=== PATIENT | male | born 1960 | race Caucasian/White ===

== ENCOUNTER 2020-01-02 11:27 | Emergency (ER) | payer BC ==
--- NOTE | 2020-01-02 11:46 | EDM.PDOC ---
ED HPI GENERAL MEDICAL PROBLEM - General Chief Complaint: General Stated Complaint: FEELING WEAK/SWEATY/NAUSEATED AND SOB Time Seen by Provider: 01/02/20 11:42 Source of Information: Reports: Patient, Old Records, RN, RN Notes Reviewed History Limitations: Reports: No Limitations - History of Present Illness INITIAL COMMENTS - FREE TEXT/NARRATIVE: Pt presents to ER from home by POV with c/o sudden onset Thursday night (12/30/19) of sweats, chills, nausea, and acid reflux. Pt admits he may have had fevers, but didn't measure his temperature. The symptoms has persisted, and today he feels very weak in general. Pt denies pain. Admits to occasional mild shortness of breath. Pt denies chest pain, cough, eye irritation/drainage, loss of taste or smell, red tongue, rash or skin lesions, abdominal pain, V/D, fevers, recent travel, or known exposure to confirmed or suspected Covid-19 cases. Onset Date: 12/30/19 Duration: Constant Location: Reports: Generalized Severity: Moderate Improves with: Reports: None Worsens with: Reports: None Associated Symptoms: Reports: No Other Symptoms - Related Data Allergies Allergy/AdvReac Type Severity Reaction Status Date / Time No Known Allergies Allergy Verified 01/02/20 11:36 Home Meds: Home Meds Omeprazole Magnesium [Prilosec Otc] 20 mg PO DAILY 01/02/20 [History] Past Medical History Cardiovascular History: Reports: Heart Murmur Respiratory History: Reports: Other (See Below) (Chronic tobacco dependence.) Gastrointestinal History: Reports: GERD Social & Family History - Family History Family Medical History: Noncontributory - Tobacco Use Smoking Status *Q: Current Every Day Smoker Tobacco Use Within Last Twelve Months: Cigarettes Years of Tobacco use: 40 Packs/Tins Daily: 1.5 Smoking Cessation Information Provided To Patient: Patient Refused - Alcohol Use Alcohol Use History: Yes - Living Situation & Occupation Occupation: Employed ED ROS GENERAL - Review of Systems Review Of Systems: Comprehensive ROS is negative, except as noted in HPI. ED EXAM, GENERAL - Physical Exam Exam: See Below Exam Limited By: No Limitations General Appearance: Alert, WD/WN, No Apparent Distress Eye Exam: Bilateral Eye: Normal Inspection (No scleral icterus) Ears: Normal External Exam, Hearing Grossly Normal Nose: Normal Inspection, Normal Mucosa, No Blood Throat/Mouth: Normal Lips, Normal Oropharynx, Normal Voice, No Airway Compromise , Other (Dry oral mucosa) Head: Atraumatic, Normocephalic Neck: Normal Inspection, Supple, Non-Tender, Full Range of Motion Respiratory/Chest: No Respiratory Distress, Lungs Clear, Normal Breath Sounds, No Accessory Muscle Use, Chest Non-Tender. No: Rales, Rhonchi, Wheezing, Stridor Cardiovascular: Regular Rate, Rhythm, No Edema, No JVD, Systolic Murmur (4/6 NANO ) GI/Abdominal: Normal Bowel Sounds, Soft, Non-Tender, No Distention. No: Guarding, Rigid, Rebound Back Exam: Normal Inspection, Full Range of Motion. No: CVA Tenderness (L), CVA Tenderness (R) Extremities: Normal Inspection, Normal Range of Motion, Non-Tender, Normal Capillary Refill, No Pedal Edema Neurological: Alert, Oriented, CN II-XII Intact, Normal Cognition, Normal Gait, No Motor/Sensory Deficits Psychiatric: Normal Affect, Normal Mood Skin Exam: Warm, Dry, Intact, Normal Color, No Rash EKG INTERPRETATION EKG Date: 01/02/20 Time: 11:57 Rhythm: Other (SR) Rate (Beats/Min): 81 [place]: Normal P-Wave: Present QRS: Other (RSR' in V1/V2, LVH) ST-T: Normal QT: Normal Comparison: NA - No Prior EKG Course - Vital Signs Last Recorded V/S: Last Vital Signs Temp 98.2 F 01/02/20 11:36 Pulse 86 01/02/20 11:36 Resp 18 01/02/20 11:36 BP 187/89 H 01/02/20 11:36 Pulse Ox 98 01/02/20 11:36 - Orders/Labs/Meds Orders: Active Orders 24 hr Category Date Time Status EKG 12 Lead [EKG Documentation Completion] [RC] STAT Care 01/02/20 11:53 Active Peripheral IV Care [RC] . DIRECTED Care 01/02/20 11:54 Active CULTURE URINE [RM] Stat Lab 01/02/20 13:35 Received Sodium Chloride 0.9% [Saline Flush] Med 01/02/20 11:54 Active 10 ml FLUSH ASDIRECTED PRN Peripheral IV Insertion Adult [OM.PC] Stat Oth 01/02/20 11:53 Ordered Medication Orders Sodium Chloride (Saline Flush) 10 ml FLUSH ASDIRECTED PRN PRN Reason: Keep Vein Open Last Admin: 01/02/20 12:24 Dose: 10 ml Labs: Laboratory Tests 01/02/20 01/02/20 01/02/20 Range/Units 11:58 11:58 11:58 WBC 11.1 H (5.0-10.0) 10^3/uL RBC 5.58 (4.6-6.2) 10^6/uL Hgb 17.5 (14.0-18.0) g/dL Hct 50.7 (40.0-54.0) % MCV 90.9 (80-100) fL MCH 31.4 (27.0-34.0) pg MCHC 34.5 (33.0-35.0) g/dL Plt Count 209 (150-450) 10^3/uL Neut % (Auto) 72.9 (42.2-75.2) % Lymph % (Auto) 16.7 L (20.5-50.1) % Parker % (Auto) 8.5 H (2-8) % Eos % (Auto) 1.5 (1.0-3.0) % Baso % (Auto) 0.4 (0.0-1.0) % D-Dimer, Quantitative < 100 (0-400) ng/mL Sodium 134 L (136-145) mmol/L Potassium 4.3 (3.5-5.1) mmol/L Chloride 97 L (98-107) mmol/L Carbon Dioxide 27 (21-32) mmol/L Anion Gap 14.3 H (7-13) mEq/L BUN 20 H (7-18) mg/dL Creatinine 1.46 H (0.70-1.30) mg/dL Est Cr Clr Drug Dosing 57.31 mL/min Estimated GFR (MDRD) 49 BUN/Creatinine Ratio 13.7 (No establ ref range) Glucose 95 (74-99) mg/dL Calcium 9.0 (8.5-10.1) mg/dL Total Bilirubin 0.8 (0.2-1.0) mg/dL AST 28 (15-37) U/L ALT 46 (16-63) U/L Alkaline Phosphatase 97 (46-116) U/L Troponin I < 0.017 (0.000-0.056) ng/mL Total Protein 7.5 (6.4-8.2) g/dL Albumin 3.7 (3.4-5.0) g/dL Globulin 3.8 Albumin/Globulin Ratio 1.0 Amylase 41 (25-115) U/L Lipase 96 (73-393) U/L Urine Color (YELLOW) Urine Appearance (CLEAR) Urine pH (5.0-9.0) Ur Specific [place] (1.005-1.030) Urine Protein (NEGATIVE) Urine Glucose (UA) (NEGATIVE) Urine Ketones (NEGATIVE) Urine Occult Blood (NEGATIVE) Urine Nitrite (NEGATIVE) Urine Bilirubin (NEGATIVE) Urine Urobilinogen (0.2-1.0) mg/dL Ur Leukocyte Esterase (NEGATIVE) Urine RBC /HPF Urine WBC (0-5/HPF) /HPF Ur Epithelial Cells (NOT SEEN) /HPF Amorphous Sediment (NOT SEEN) /HPF Urine Bacteria (0-FEW/HPF) /HPF /03/15 Range/Units 13:35 WBC (5.0-10.0) 10^3/uL RBC (4.6-6.2) 10^6/uL Hgb (14.0-18.0) g/dL Hct (40.0-54.0) % MCV (80-100) fL MCH (27.0-34.0) pg MCHC (33.0-35.0) g/dL Plt Count (150-450) 10^3/uL Neut % (Auto) (42.2-75.2) % Lymph % (Auto) (20.5-50.1) % Parker % (Auto) (2-8) % Eos % (Auto) (1.0-3.0) % Baso % (Auto) (0.0-1.0) % D-Dimer, Quantitative (0-400) ng/mL Sodium (136-145) mmol/L Potassium (3.5-5.1) mmol/L Chloride (98-107) mmol/L Carbon Dioxide (21-32) mmol/L Anion Gap (7-13) mEq/L BUN (7-18) mg/dL Creatinine (0.70-1.30) mg/dL Est Cr Clr Drug Dosing mL/min Estimated GFR (MDRD) BUN/Creatinine Ratio (No establ ref range) Glucose (74-99) mg/dL Calcium (8.5-10.1) mg/dL Total Bilirubin (0.2-1.0) mg/dL AST (15-37) U/L ALT (16-63) U/L Alkaline Phosphatase (46-116) U/L Troponin I (0.000-0.056) ng/mL Total Protein (6.4-8.2) g/dL Albumin (3.4-5.0) g/dL Globulin Albumin/Globulin Ratio Amylase (25-115) U/L Lipase (73-393) U/L Urine Color Yellow (YELLOW) Urine Appearance Clear (CLEAR) Urine pH 5.5 (5.0-9.0) Ur Specific [place] 1.010 (1.005-1.030) Urine Protein Negative (NEGATIVE) Urine Glucose (UA) Negative (NEGATIVE) Urine Ketones Trace H (NEGATIVE) Urine Occult Blood Negative (NEGATIVE) Urine Nitrite Negative (NEGATIVE) Urine Bilirubin Negative (NEGATIVE) Urine Urobilinogen 0.2 (0.2-1.0) mg/dL Ur Leukocyte Esterase Trace H (NEGATIVE) Urine RBC 0-5 /HPF Urine WBC 0-5 (0-5/HPF) /HPF Ur Epithelial Cells Rare (NOT SEEN) /HPF Amorphous Sediment Few (NOT SEEN) /HPF Urine Bacteria Rare (0-FEW/HPF) /HPF Meds: Medications Generic Name Dose Route Start Last Admin Trade Name Polina PRN Reason Stop Dose Admin Sodium Chloride 10 ml 01/02/20 11:54 01/02/20 12:24 Saline Flush FLUSH 10 ml ASDIRECTED PRN Administration Keep Vein Open Discontinued Medications Generic Name Dose Route Start Last Admin Trade Name Polina PRN Reason Stop Dose Admin Famotidine 20 mg 01/02/20 11:56 01/02/20 12:26 Pepcid IVPUSH 01/02/20 11:57 20 mg ONETIME ONE Administration Sodium Chloride 1,000 mls @ 999 mls/hr 01/02/20 11:54 01/02/20 13:32 Normal Saline IV 01/02/20 12:54 Infused .BOLUS ONE Infusion Ondansetron HCl 4 mg 01/02/20 11:54 01/02/20 12:26 Zofran IV 01/02/20 11:55 4 mg ONETIME ONE Administration - Radiology Interpretation Free Text/Narrative:: XR Chest: no acute process per Rad. report. Departure - Departure Time of Disposition: 14:01 Disposition: Home, Self-Care 01 Condition: Good Clinical Impression: Acute viral syndrome, Dehydration, Cardiac murmur - Discharge Information *PRESCRIPTION DRUG MONITORING PROGRAM REVIEWED*: Not Applicable *COPY OF PRESCRIPTION DRUG MONITORING REPORT IN PATIENT AUDI: Not Applicable Instructions: Viral Illness, Adult, Dehydration, Adult, [id number], Heart Murmur Forms: ED Department Discharge Additional Instructions: Rx: Zofran 4mg Drink plenty of fluids. Rest a few days. Follow with your primary clinic for recheck and to schedule an ECHO and/or cardiology referral. Sepsis Event Note - Evaluation Sepsis Screening Result: No Definite Risk - Focused Exam Vital Signs: Vital Signs Temp Pulse Resp BP Pulse Ox 01/02/20 11:36 98.2 F 86 18 187/89 H 98 Date Exam was Performed: 01/02/20 Time Exam was Performed: 14:01 - My Orders Last 24 Hours: My Active Orders 01/02/20 11:53 EKG 12 Lead [EKG Documentation Completion] [RC] STAT Peripheral IV Insertion Adult [OM.PC] Stat 01/02/20 11:54 Peripheral IV Care [RC] . DIRECTED Sodium Chloride 0.9% [Saline Flush] 10 ml FLUSH ASDIRECTED PRN 01/02/20 13:35 CULTURE URINE [RM] Stat - Assessment/Plan Last 24 Hours: My Active Orders 01/02/20 11:53 EKG 12 Lead [EKG Documentation Completion] [RC] STAT Peripheral IV Insertion Adult [OM.PC] Stat 01/02/20 11:54 Peripheral IV Care [RC] . DIRECTED Sodium Chloride 0.9% [Saline Flush] 10 ml FLUSH ASDIRECTED PRN 01/02/20 13:35 CULTURE URINE [RM] Stat
[2020-01-02] MEDS ORDERED: Sodium Chloride 0.9% 10 ML Syringe FLUSH PRN (11:54)
[2020-01-02] MEDS ORDERED: Ondansetron 4 MG/2 ML SDV IV ONE (11:54)
[2020-01-02] MEDS ORDERED: Sodium Chloride 0.9% 1,000 ML IV ONE (11:54)
[2020-01-02] MEDS ORDERED: Famotidine 20 MG/2 ML SDV IVPUSH ONE (11:56)
[2020-01-02 12:28] LABS: ANION GAP 14.3 mEq/L (7-13); CHLORIDE,CL 97 mmol/L (98-107); SODIUM,NA 134 mmol/L (136-145)
--- NOTE | 2020-01-02 12:53 | CR ---
EXAMINATION: Chest 2V SEX: Male AGE: 59 years CLINICAL HISTORY: 59-year-old male complaining of fever, chills and short of breath (SOB). INTERPRETATION: NEGATIVE. 1. Normal cardiac silhouette and pulmonary vascularity is no vascular congestion, cephalization flow, alveolar edema or dependent pleural effusion. (External school bus monitor leads). 2. No lung mass or hilar lymphadenopathy. Midline tracheal bronchial airway unremarkable. 3. No focal lobar consolidation IE no infiltrate, atelectasis or collapse. 4. No pneumothorax or pneumomediastinum. No air trapping. No free subdiaphragmatic air. 5. Ariella thorax unremarkable (minimal marginal spondylosis several levels dorsal spine).
== END 2020-01-02 14:10 | disposition home or self-care (01) ==
LOC: DL.ED 11:27
DX: B34.9 Viral infection, unspecified (principal); E86.0 Dehydration; R01.1 Cardiac murmur, unspecified; F17.210 Nicotine dependence, cigarettes, uncomplicated; K21.9 Gastro-esophageal reflux disease without esophagitis; Z79.899 Other long term (current) drug therapy
CPT/HCPCS: 36415; 71046; 80053; 81001; 82150; 83690; 84484; 85025; 85379; 87086; 93005; 96361; 96374; 96375; 99284-25; J2405; J3490; J7030